=== PATIENT | male | born 1940 | race Caucasian/White ===

== ENCOUNTER 2018-02-27 21:53 | Emergency (ER) | payer OTHER ==
[~2018-02-27] VITALS: Ht 185.4 cm; Wt 102.1 kg
[~2018-02-27 21:53] MED LIST: AMIODARONE HCL200 MG PO; AMIODARONE PO; ASPIRIN E.C.81 M1 PO; ASPIRIN LOW DOS81 M1 PO; ASPIRIN81 M1; BENICAR5 MG PO; CORDARONE200 MG PO; COREG6.25 M1; Coreg PO; Coumadin,Jantoven PO; DIOVAN40 MG; DIOVAN40 MG PO; LASIX40 MG; LASIX40 MG PO; LIPITOR10 MG PO; LO-DOSE ASPIRIN81 M2 PO; Motrin PO; NORCO 5/3251 TABLET PO; TRAMADOL HCL50 MG PO; Tylenol Extra Streng PO; WARFARIN SODIU2.5 MG PO; WARFARIN SODIUM5 MG; WARFARIN SODIUM5 MG PO
[2018-02-27 23:14] LABS: HEMATOCRIT 39.1 % (38.0-50.0); HEMOGLOBIN 13.5 G/DL (12.5-16.6); MCH 32.6 PG (29.0-34.0); MCHC 34.5 G/DL (30.0-36.0); MCV 94.4 FL (86-99); PLATELET COUNT 187 K/uL (156-360); RBC DIS.WIDTH-CV 13.1 % (11.8-14.6); RED BLOOD COUNT 4.14 M/uL (4.00-5.50); WHITE BLOOD COUNT 7.5 K/uL (4.1-10.2)
[2018-02-27 23:21] LABS: INTER. NORMALIZED RATIO 2.4
[2018-02-27 23:24] LABS: PTT 35.2 SEC (25-37)
[2018-02-27 23:26] LABS: CHLORIDE 108 mEq/L (99-109); POTASSIUM 5.3 mEq/L (3.7-5.4); SODIUM 138 mEq/L (136-147)
[2018-02-27 23:28] LABS: GLUCOSE 99 mg/dL (70-99)
[2018-02-27 23:32] LABS: CREATININE 1.3 mg/dL (0.6-1.3); GFR ESTIMATE (CALCULATED) 57 mL/min/ (58.99-99999)
[2018-02-27 23:33] LABS: UREA NITROGEN (BUN) 19 mg/dL (9-23)
[2018-02-28] MEDS ORDERED: FLEXERIL10 MG PO (00:38)
[2018-02-28] MEDS ORDERED: NORCO 5/3251 TABLET PO (00:38)
[2018-02-28] MEDS ORDERED: LIDODERM 5% P1 PATCH TD (00:38)
[2018-02-28 01:37] VITALS: BP 143/71
== END 2018-02-28 01:39 | disposition home or self-care (01) ==
LOC: EME 21:53
PROVIDERS: Emergency Medicine
DX: S39.012A Strain of muscle, fascia and tendon of lower back, initial encounter (principal); X50.9XXA Other and unspecified overexertion or strenuous movements or postures, initial encounter; Y93.H9 Activity, other involving exterior property and land maintenance, building and construction; Z79.01 Long term (current) use of anticoagulants; I10 Essential (primary) hypertension; E78.5 Hyperlipidemia, unspecified; Z87.891 Personal history of nicotine dependence; Z79.82 Long term (current) use of aspirin
CPT/HCPCS: 72131; 80048; 81003; 85027; 85610; 85730; 99281; 99285